=== PATIENT | male | born 1980 | race Caucasian/White ===

== ENCOUNTER 2024-08-17 18:45 | Emergency (ER) | payer OTHER, SELFPAY ==
[2024-08-17] VITALS (9 sets, daily range): BP systolic 151–184; BP diastolic 80–95; PULSE 109–132; RESP 11–20; TEMP 37.6; O2SAT 97–99; BMI 36.7
--- NOTE | 2024-08-17 19:08 | ED_ITS ---
HPI - Nausea/Vomiting/Diarrhea General Chief complaint: Nausea/Vomiting/Diarrhea Stated complaint: Vomitting Time Seen by Provider: 08/17/24 19:07 Mode of arrival: EMS History of Present Illness HPI Narrative: 43-year-old male with history of diabetes, has had recent nausea and vomiting with some diarrhea, no black or red stools, some sore throat after multiple episodes of vomiting as well, no black or red emesis. Some epigastric area discomfort. He does not recall history of diabetic gastroparesis, does not recall taking metoclopramide/Reglan medications. He has been taking his diabetes medications. No recent antibiotics. He denies chest pain shortness of breath. He denies cough, nasal congestion, ear pain. Related Data Allergies Allergy/AdvReac Type Severity Reaction Status Date / Time No Known Drug Allergies Allergy Verified 08/17/24 21:10 Patient History Social History Smoking Status: Never smoker Smoking Status: Never smoker Exam Narrative Exam Narrative: GENERAL: Well-developed patient, in mild distress. HEAD: Atraumatic. Normocephalic. EYES: Pupils equal round and reactive. Extraocular motions intact. No scleral icterus. No injection or drainage. ENT: Nose without bleeding, purulent drainage. Throat without erythema, tonsillar hypertrophy or exudate. Airway patent. NECK: Trachea midline. Non tender CARDIOVASCULAR: Regular rate and rhythm without murmurs, gallops, or rubs. RESPIRATORY: Clear to auscultation. Breath sounds equal bilaterally. No wheezes, rales, or rhonchi. GASTROINTESTINAL: Abdomen soft, non-tender, nondistended. EXTREMITIES: No edema or joint tenderness. BACK: Nontender without deformity or crepitance. No flank tenderness. NEURO: AOx3. Motor functions grossly nonfocal SKIN: No rash or erythema of visible areas Initial Vital Signs Initial Vital Signs: Vital Signs Temperature 99.6 F 08/17/24 18:47 Pulse Rate 132 H 08/17/24 18:47 Respiratory Rate 16 08/17/24 18:47 Blood Pressure 163/95 H 08/17/24 18:47 Pulse Oximetry 98 08/17/24 18:47 Oxygen Delivery Method Room Air 08/17/24 18:47 Course Orders Ordered: ED Orders 08/17/24 19:05 Complete Blood Count AUTO DIFF Stat Comprehensive Metabolic Panel Stat Lipase Stat 08/17/24 19:08 VBG [Venous Blood Gas] STAT 08/17/24 19:12 Venous Blood Gas Routine 08/17/24 19:20 CT abdomen pelvis w con Stat 08/17/24 19:38 EKG-12 Lead Stat Discontinued Medications Al Hydrox/Mg Hydrox/Simethicone (Mag Hydrox/Alum/Simeth 30 Ml Udc) 30 ml PO NOW ONE Stop: 08/17/24 20:34 Last Admin: 08/17/24 20:47 Dose: 30 ml Documented By: DORCAS Ondansetron HCl (Ondansetron 4 Mg Odt Prepack) 1 bottle MISC DIRECTED ONE Stop: 08/17/24 21:17 Last Admin: 08/17/24 21:21 Dose: 1 bottle Documented By: DORCAS Pantoprazole Sodium (Pantoprazole 40 Mg Vial) 40 mg IV NOW ONE Stop: 08/17/24 20:34 Last Admin: 08/17/24 20:47 Dose: 40 mg Documented By: DORCAS Vital Signs Vital signs: Vital Signs - 8 hr 08/17/24 18:47 08/17/24 19:00 08/17/24 19:30 Temperature 99.6 F Pulse Rate 132 H 126 H 113 H Respiratory Rate 16 17 Blood Pressure 163/95 H Pulse Oximetry 98 97 98 Oxygen Delivery Method Room Air 08/17/24 19:43 08/17/24 19:43 08/17/24 20:00 Temperature Pulse Rate 115 H 109 H Respiratory Rate 14 11 L Blood Pressure 184/85 H Pulse Oximetry 99 97 Oxygen Delivery Method 08/17/24 20:30 08/17/24 20:31 08/17/24 21:00 Temperature Pulse Rate 116 H 116 H 115 H Respiratory Rate 19 20 13 Blood Pressure 172/80 H Pulse Oximetry 97 98 99 Oxygen Delivery Method 08/17/24 21:01 08/17/24 21:01 Temperature Pulse Rate 114 H Respiratory Rate 15 Blood Pressure 151/93 H Pulse Oximetry 98 Oxygen Delivery Method MDM - Nausea/Vomiting/Diarrhea Lab Data Attestation: I reviewed the patient's lab results. Lab results narrative: White blood cell count 95500, hemoglobin 15.2. BUN 271.0 glucose 259. Serum CO2 26. Sodium 120, chloride 96, potassium 3.5. VBG ordered from nursing, normal pH noted. Liver functions and lipase normal. 08/17/24 19:05 08/17/24 19:05 Labs: Lab Results 08/17/24 08/17/24 Range/Units 19:05 19:12 WBC 12.0 H (4.5-11.0) X10^3/uL RBC 5.38 (4.5-5.9) X10^6/uL Hgb 15.2 (13.5-17.5) g/dL Hct 45.7 (41-53) % MCV 85.0 (80-100) fL MCH 28.3 (26-34) PG MCHC 33.4 (30-36) % RDW 13.7 (11.6-14.8) % Plt Count 333 (150-400) X10^3/uL Neut % (Auto) 78.2 H (50-75) % Lymph % (Auto) 12.0 L (25-40) % Mathews % (Auto) 8.8 (3-14) % Eos % (Auto) 0.5 L (2-4) % Baso % (Auto) 0.5 (0-2) % Neut # (Auto) 9400 H (9981-0376) /uL Lymph # (Auto) 1400 (7092-9911) /uL Mathews # (Auto) 1100 H (0-900) /uL Eos # (Auto) 100 (0-450) /uL Baso # (Auto) 100 (0-100) /uL VBG pH 7.42 (7.33-7.43) VBG pCO2 40.0 L (45-50) mmHg VBG pO2 45 (35-45) mmHg VBG HCO3 26 (24-28) mmol/L VBG Total CO2 25 (24-29) mmol/L VBG O2 Saturation 81 H (70-75) % VBG Base Excess 1.1 (0-4) mmol/L FiO2 % 21 % % Sodium 138 (137-145) mmol/L Potassium 3.5 (3.4-5.1) mmol/L Chloride 96 L (98-107) mmol/L Carbon Dioxide 26 (22-32) mmol/L BUN 27 H (9-20) mg/dL Creatinine 1.04 (0.66-1.25) mg/dL Estimated GFR > 60 (>60) mL/min BUN/Creatinine Ratio 26.0 H (6-22) Glucose 259 H (70-100) mg/dL Calcium 9.2 (8.4-10.2) mg/dL Total Bilirubin 1.2 (0.2-1.3) mg/dL AST 21 (17-59) IU/L ALT 19 (<50) IU/L Alkaline Phosphatase 86 (38-126) U/L Total Protein 7.8 (6.3-8.2) g/dL Albumin 4.5 (3.5-5.0) g/dL Globulin 3.3 (1.7-4.1) g/dL Albumin/Globulin Ratio 1.4 (1.0-2.8) Lipase 21 L (23-300) U/L Point of Care Testing Glucose POC [address] scan - abdomen/pelvis: Radiologist's Impression: [address] [address] [address] Scan Report Signed Patient: Jose Hernández MR#: [id number] : 1980 Acct:[id number] Age/Sex: 43 / M Date of Service: 08/17/24 Loc: ED Accession Number: [id number] Procedure: CT abdomen pelvis w con Ordering Provider: Royer López MD PROCEDURE: CT ABDOMEN PELVIS W CON INDICATIONS: N/V/D abd pain TECHNIQUE: After the administration of intravenous contrast, axial sections acquired from the lung bases to the pubic symphysis. Coronal and sagittal reformats were performed. For radiation dose reduction, the following was used: automated exposure control, adjustment of mA and/or kV according to patient size. COMPARISON: [facility], CT, CT ABDOMEN PELVIS WITH CONTRAST, 09/14/2023, 18:48. FINDINGS: Image quality: This study is limited by body habitus. Lower Chest: A small hiatal hernia is incidentally noted. The distal esophagus appears thickened. ABDOMEN: Liver: No solid mass. Diffuse fatty liver infiltration is noted. Gallbladder: There are potential layering gallstones. No additional CT findings of cholecystitis. Biliary ducts: No biliary dilation. Pancreas: No ductal dilation. Spleen: Size is within normal limits. Adrenal Glands: No adrenal nodules. Kidneys and Ureters: No hydronephrosis. No solid mass. No complex renal cystic lesion which requires follow up. Stomach and Bowel: Normal colonic caliber, without significant wall thickening. A few scattered colonic diverticula can be seen. A normal appendix is noted. No dilated loops of small bowel are seen. Peritoneum: No abnormal intraperitoneal fluid. No free air. Ventral Wall: No significant ventral hernia. Abdominal Nodes: No retroperitoneal or mesenteric adenopathy by size criteria. Vessels: Aorta and inferior vena cava are normal in size. PELVIS: Pelvic Organs: Unremarkable. Bladder: No bladder wall thickening, accounting for underdistention. Pelvic Nodes: No enlarged lymph nodes. Miscellaneous: No inguinal hernias are seen. Bones: No aggressive osseous abnormality. Accentuated thoracic kyphosis is seen. Premature degenerative changes are seen. IMPRESSION: Hiatal hernia seen, with the thickened appearance of the distal esophagus. Please consider reflux esophagitis. No dilated loops of small bowel are seen. Normal appendix. Additional findings: Accentuated thoracic kyphosis Fatty liver infiltration Potential layering gallstones Mild diverticulosis, without findings of active diverticulitis Dictated by: Matthias Sanchez M.D. on 08/17/2024 at 19:02 Approved by: Matthias Sanchez M.D. on 08/17/2024 at 19:04 ECG Data Attestation: I personally reviewed and interpreted this ECG as follows: Interpretation: EKG shows sinus tachycardia with rate 113, no obvious ST segment elevation or depression changes. T-wave inversion lead 3 upright in other contiguous inferior leads noted. NH 166, QRS 76, QTC 458. [facility] Narrative Medical decision making narrative: 43-year-old diabetic male with nausea and vomiting, epigastric discomfort, no recalled diagnosis of diabetic gastroparesis, VBG sent by nursing showed pH 7.4 normal, subsequent labs BNP showed normal anion gap, glucose 200s noted, IV fluid, IV Zofran. CT abdomen and pelvis requested CT abdomen and pelvis with IV contrast. Impressions: ?Hiatal hernia seen, with thickened appearance of the distal esophagus. Please consider reflux esophagitis. No dilated loops of small bowel are seen. Normal appendix. Additional findings: Accentuated thoracic kyphosis, fatty liver infiltration, potential layering gallstones, mild diverticulosis without findings of active diverticulitis.? See radiology report Oral Maalox dose, IV Protonix dose. Able to take ice chips, improved, we would like to go home. Patient advised to continue his omeprazole PPI medication for now, consider upper endoscopy in follow up. Return precautions discussed Discharge Plan Departure Patient Disposition: Home Clinical Impression: Nausea and vomiting, Esophagitis Instructions: DI for Vomiting -- Adult Activity Restrictions/Additional Instructions: Nausea with vomiting, history of diabetes, no known history of diabetic gastroparesis, initial heart rate elevation sinus tachycardia noted, IV fluids given, antinausea medications given. Labs not consistent with diabetic ketoacidosis today. Sugar in the 200s range noted. CT abdomen and pelvis showed presence of hiatal hernia, also some esophageal thickening, consideration for esophagitis. Incidentally on the CT scan also as mentioned of possible tiny layered gallstones, diverticulosis without diverticulitis of the colon, fatty liver changes. While in the emergency department given oral Maalox liquid antacid and IV Protonix antacid. You felt better, we are able to take oral fluids and ice chips. You stated that you had taken omeprazole, encouraged to take it regularly daily every day. There was some thickening of the esophagus, this might be diffusely inflammatory, can also be pathologic, sometimes needs to be biopsy to make sure there is no cancer or other concerning changes, consider endoscopy, consider referral from your regular primary care provider. Follow up with your regular primary care provider early this week to help coordinate further evaluation as an outpatient. Given contact information for local general surgery, though you might require referral from your primary care provider for endoscopy referral. Return earlier to this/nearest emergency department for any change worsening symptoms or any concerns prior Referrals: José Buckley MD [Physician] - Miscellaneous,MD Arely [Primary Care Provider] - Stand Alone Forms: Patient Portal/API/Survey
[2024-08-17 19:13] LABS: Add Manual Diff / Slide Review NO; Basophils Absolute Auto 100 /uL (0-100); Basophils Percent Auto 0.5 % (0-2); Eosinophils Absolute Auto 100 /uL (0-450); Eosinophils Percent Auto 0.5 % (2-4); Hematocrit 45.7 % (41-53); Hemoglobin 15.2 g/dL (13.5-17.5); Lymphocytes Absolute Auto 1400 /uL (1100-4500); Mean Corpuscular HGB Conc 33.4 % (30-36); Mean Corpuscular Hemoglobin 28.3 PG (26-34); Monocytes Absolute Auto 1100 /uL (0-900); Monocytes Percent Auto 8.8 % (3-14); Neutrophils Absolute Auto 9400 /uL (1500-7000); Neutrophils Percent Auto 78.2 % (50-75); Platelet Count 333 X10^3/uL (150-400); Red Blood Cell Count 5.38 X10^6/uL (4.5-5.9); Red Cell Distribution Width 13.7 % (11.6-14.8)
[2024-08-17 19:15] LABS: Base Excess VBG 1.1 mmol/L (0-4); HCO3 VBG 26 mmol/L (24-28); Oxygen Saturation VBG 81 % (70-75); PO2 VBG 45 mmHg (35-45); Total CO2 VBG 25 mmol/L (24-29); pH VBG 7.42 (7.33-7.43)
--- NOTE | 2024-08-17 19:20 | DI.CT.S_ITS ---
PROCEDURE: CT ABDOMEN PELVIS W CON INDICATIONS: N/V/D abd pain TECHNIQUE: After the administration of intravenous contrast, axial sections acquired from the lung bases to the pubic symphysis. Coronal and sagittal reformats were performed. For radiation dose reduction, the following was used: automated exposure control, adjustment of mA and/or kV according to patient size. COMPARISON: [facility], CT, CT ABDOMEN PELVIS WITH CONTRAST, 09/14/2023, 18:48. FINDINGS: Image quality: This study is limited by body habitus. Lower Chest: A small hiatal hernia is incidentally noted. The distal esophagus appears thickened. ABDOMEN: Liver: No solid mass. Diffuse fatty liver infiltration is noted. Gallbladder: There are potential layering gallstones. No additional CT findings of cholecystitis. Biliary ducts: No biliary dilation. Pancreas: No ductal dilation. Spleen: Size is within normal limits. Adrenal Glands: No adrenal nodules. Kidneys and Ureters: No hydronephrosis. No solid mass. No complex renal cystic lesion which requires follow up. Stomach and Bowel: Normal colonic caliber, without significant wall thickening. A few scattered colonic diverticula can be seen. A normal appendix is noted. No dilated loops of small bowel are seen. Peritoneum: No abnormal intraperitoneal fluid. No free air. Ventral Wall: No significant ventral hernia. Abdominal Nodes: No retroperitoneal or mesenteric adenopathy by size criteria. Vessels: Aorta and inferior vena cava are normal in size. PELVIS: Pelvic Organs: Unremarkable. Bladder: No bladder wall thickening, accounting for underdistention. Pelvic Nodes: No enlarged lymph nodes. Miscellaneous: No inguinal hernias are seen. Bones: No aggressive osseous abnormality. Accentuated thoracic kyphosis is seen. Premature degenerative changes are seen. IMPRESSION: Hiatal hernia seen, with the thickened appearance of the distal esophagus. Please consider reflux esophagitis. No dilated loops of small bowel are seen. Normal appendix. Additional findings: Accentuated thoracic kyphosis Fatty liver infiltration Potential layering gallstones Mild diverticulosis, without findings of active diverticulitis Dictated by: Matthias Sanchez M.D. on 08/17/2024 at 19:02 Approved by: Matthias Sanchez M.D. on 08/17/2024 at 19:04
[2024-08-17 19:24] LABS: Alanine Aminotransferase 19 IU/L (<50); Albumin 4.5 g/dL (3.5-5.0); Albumin Globulin Ratio 1.4 (1.0-2.8); Alkaline Phosphatase 86 U/L (38-126); Aspartate Aminotransferase 21 IU/L (17-59); Bilirubin Total 1.2 mg/dL (0.2-1.3); Blood Urea Nitrogen 27 mg/dL (9-20); Calcium 9.2 mg/dL (8.4-10.2); Carbon Dioxide 26 mmol/L (22-32); Chloride 96 mmol/L (98-107); Estimated Glomerular Filt Rate > 60 mL/min (>60); Globulin 3.3 g/dL (1.7-4.1); Glucose 259 mg/dL (70-100); HEMOLYSIS < 15 (0-50); Lipase 21 U/L (23-300); Potassium 3.5 mmol/L (3.4-5.1); Sodium 138 mmol/L (137-145); Total Protein 7.8 g/dL (6.3-8.2)
--- NOTE | 2024-08-17 19:38 | EKG_ITS ---
[facility] [address] [place] [address] Test Date: 2024-08-17 Pat Name: Jose Hernández Department: [facility] Room: Gender: Male [employer]: : 1980 Requested By: Order Number: [id number] Reading MD: Raheem Sierra Measurements Intervals [place] Rate: 113 P: 35 AR: 166 QRS: 47 QRSD: 76 T: 30 QT: 334 QTc: 458 Interpretive Statements Sinus tachycardia Low voltage QRS Electronically Signed On 08-19-2024 9:43:42 PST by Raheem Sierra
[2024-08-17] MEDS: MAG HYDROX/ALUM/SIMETH 30 ML UDC PO (20:47)
[2024-08-17] MEDS: PANTOPRAZOLE 40 MG VIAL IV (20:47)
[2024-08-17] MEDS: ONDANSETRON 4 MG ODT PREPACK 1 BOTTLE MISC (21:21)
== END 2024-08-17 21:28 | disposition home or self-care (01) ==
PROVIDERS: Emergency Provider Emergency Medicine
DX: K20.90 Esophagitis, unspecified without bleeding (principal); R11.2 Nausea with vomiting, unspecified; R19.7 Diarrhea, unspecified; J02.9 Acute pharyngitis, unspecified; R10.13 Epigastric pain; E11.9 Type 2 diabetes mellitus without complications; R00.0 Tachycardia, unspecified
CPT/HCPCS: 36415; 74177; 80053; 82805; 82962; 83690; 85025; 93005; 96374; 99284; J2470; Q9967